=== PATIENT | male | born 1990 | race African-American/Black ===

== ENCOUNTER 2024-08-25 14:59 | Emergency (ER) | payer OTHER ==
[~2024-08-25] VITALS: Ht 180.3 cm; Wt 105.7 kg
[2024-08-25] MEDS: diazePAM 5MG TABLET PO ONE (20:07)
[2024-08-25] MEDS ORDERED: PROHANCE 279.3MG/ML 5ML VIAL As Ordered ONE (20:43)
[2024-08-25 21:53] VITALS: TEMP 96.9
[2024-08-25 23:30] VITALS: BP 132/88; O2SAT 98
== END 2024-08-25 23:41 | disposition home or self-care (01) ==
LOC: M ED 14:59
DX: H53.8 Other visual disturbances (principal); R51.9 Headache, unspecified
CPT/HCPCS: 70553; 99284; A9576